=== PATIENT | male | born 1995 | race Caucasian/White ===

== ENCOUNTER 2018-12-07 14:17 | Emergency (ER) | payer SELFPAY ==
[~2018-12-07] VITALS: Ht 175.3 cm; Wt 84.8 kg
[2018-12-07 14:27] VITALS: BP 120/101
[2018-12-07] MEDS ORDERED: ERYT1OIN6 OP (14:36)
--- NOTE | 2018-12-07 14:36 | PHYS DOC ---
Past History Past Medical History: Other Past Surgical History: No Surgical History Alcohol Use: Occasionally Drug Use: None Adult General Chief Complaint Chief Complaint: EYE PROBLEMS HPI HPI Patient is a 23-year-old male who presents with complaint of left lower eyelid swelling and pain that started a couple of days ago. Patient is wondering if he may have just some pink eye or if it's a stye. He denies any changes to his vision. He also denies any fever. He rates pain as mild. Review of Systems Review of Systems Constitutional: Denies fever or chills [] Eyes: Denies change in visual acuity. Complains of left lower eyelid pain and swelling [] Respiratory: Denies cough or shortness of breath [] Cardiovascular: No additional information not addressed in HPI [] Allergies Allergies Allergies Coded Allergies Type Severity Reaction Last Updated Verified bupropion Allergy Unknown 12/07/18 Yes Physical Exam Physical Exam Constitutional: Well developed, well nourished, no acute distress, non-toxic appearance. [] Eyes: PERRLA, EOMI. left lower eyelid demonstrates swelling and erythema with findings consistent of stye [] Cardiovascular:Heart rate regular rhythm, no murmur [] Lungs & Thorax: Bilateral breath sounds clear to auscultation [] Current Patient Data Vital Signs Vital Signs Date Time Temp Pulse Resp B/P (MAP) Pulse Ox O2 Delivery O2 Flow Rate FiO2 12/07/18 14:27 98.3 82 16 100 Room Air EKG EKG [] Radiology/Procedures Radiology/Procedures [] Course & Med Decision Making Course & Med Decision Making Pertinent Labs and Imaging studies reviewed. (See chart for details) [] Dragon Disclaimer Dragon Disclaimer This electronic medical record was generated, in whole or in part, using a voice recognition dictation system. Departure Departure: Impression: Primary Impression: Stye Disposition: HOME, SELF-CARE Condition: STABLE Referrals: [facility] (PCP) Patient Instructions: Sty Scripts Erythromycin Base (Erythromycin) 1 Gm Oint...g. 0.5 INCH OP TID for infection, #3.5 GM Prov: GARY RAMON Jr. DO 12/07/18 Problem Qualifiers Primary Impression: Stye Laterality: left Eyelid: lower Qualified Codes: H00.015 - Hordeolum externum left lower eyelid GARY RAMON Jr. DO December 07, 2018 14:36
== END 2018-12-07 14:42 | disposition home or self-care (01) ==
LOC: ER 14:17
DX: H00.015 Hordeolum externum left lower eyelid (principal); Z88.8 Allergy status to other drugs, medicaments and biological substances
CPT/HCPCS: 99283